=== PATIENT | male | born 1960 | race Caucasian/White ===

== ENCOUNTER 2025-06-16 14:21 | Outpatient (REF) | payer MEDICARE, SELFPAY ==
[2025-06-17 14:23] LABS: Antibody to SS-A Antigen <1.0 NEG AI (<1.0 NEG); Antibody to SS-B Antigen <1.0 NEG AI (<1.0 NEG)
[2025-06-19 12:43] LABS: Anti Nuclear Antibody Pattern Nuclear, Speckled; Anti Nuclear Antibody Screen POSITIVE (NEGATIVE); Anti Nuclear Antibody Titer 1:40 titer
== END 2025-06-16 14:22 | disposition home or self-care (01) ==
LOC: HO.WFDLDS 14:21
PROVIDERS: PCP Physician Assistant Medical; Referring Provider Physician Assistant Medical; Visit Provider Nurse Practitioner Family
DX: J84.9 Interstitial pulmonary disease, unspecified (principal); R91.1 Solitary pulmonary nodule; Z01.84 Encounter for antibody response examination; Z87.891 Personal history of nicotine dependence
CPT/HCPCS: 36415; 86038; 86039; 86200; 86225; 86235; 86431; 99202

== ENCOUNTER 2025-06-16 14:21 | Outpatient (AMB) | payer MEDICARE, SELFPAY ==
--- NOTE | 2025-06-16 14:24 | MHC.OFFVIS ---
Vital Signs 06/16/25 14:25 Height 5 ft 2 in Weight 162 lb BMI 29.6 BP 112/78 Blood Pressure Location Rt brachial Position Sitting Pulse 70 Pulse Source Pulse Oximeter Pulse Oximetry (%) 97 Oxygen Delivery Method Room Air Intake Visit Reasons: Pulmonary Nodules Allergies No Known Allergies Allergy (Verified 06/16/25 14:28) HPI HPI Pulmonary Nodules: Details: Shiv is a pleasant 65 year old male, former 20 pack year smoker, quit 30 years ago with underlying GERD, HLD and HTN. He was referred by PCP for further evaluation of incidental finding of a pulmonary nodule. The nodule was discovered following a respiratory illness suspected to be RSV, during which the patient experienced significant coughing but no dyspnea. During the evaluation at [place], a chest X-ray and subsequent CT scan revealed the presence of pulmonary nodules. CT report reveals subtle reticulation raising the question of chronic interstitial changes and indeterminate 3 to 4 mm solid nodule in the right middle lobe. The patient has a history of smoking, having smoked less than a pack per day from the late 1970s until quitting in the early . He denies any current respiratory symptoms, including cough, wheezing, or dyspnea, and has no history of asthma or COPD. The patient has a significant occupational history of exposure to potential respiratory irritants, having worked in [employer] and [employer] for approximately 30 years until retiring in 2013. There is a family history of pulmonary fibrosis, as the patient's brother, who did similar work, recently from the condition. The patient also reports a history of osteoarthritis, primarily affecting his hands, knees, and back, for which he receives regular cortisone injections. He has experienced dry eyes, which he attributes to recent cataract surgery, and uses eye drops for relief. Denies prior h/o autoimmune conditions. [facility] Social History (Updated 06/16/25 @ 14:27 by Aliyah Staley [facility]) Patient Tobacco Use Status: Former Tobacco user Review of Systems Const Denies chills, Denies excessive sweating, Denies fever(s), Denies headache(s) and Denies night sweats Eyes Denies dry eyes, Denies irritation and Denies itchy eyes ENT Reports Normal hearing present, Denies headache(s), Denies nasal congestion, Denies nasal discharge, Denies post nasal drip and Denies sore throat Card Denies chest pain, Denies chest pain at rest, Denies chest pain with activity, Denies claudication, Denies leg edema, Denies dyspnea, Denies dyspnea on exertion, Denies orthopnea and Denies paroxysmal nocturnal dyspnea Resp Denies chest congestion, Denies cough, Denies excessive phlegm production, Denies pain on inspiration, Denies pain with cough, Denies dyspnea, Denies dyspnea on exertion, Denies stridor and Denies wheezing Musc Denies myalgias Neuro Reports Normal hearing present and Denies headache(s) Endo Denies excessive sweating Pollo/Lymph Denies lymphadenopathy Aller/Immun Denies itchy eyes, Denies seasonal rhinorrhea and Denies wheezing Physical Exam Vital Signs: Last Vital Signs Pulse 70 06/16/25 14:25 BP 112/78 06/16/25 14:25 Pulse Ox 97 06/16/25 14:25 Oxygen Delivery Method Room Air 06/16/25 14:25 BMI result Body Mass Index 29.6 Const General: cooperative, healthy appearing, comfortable, no acute distress, well developed and alert Nutritional Appearance: obese Orientation/consciousness: patient oriented x3 Limitations: no limitations HEENT Head: Yes normal to inspection, Yes normocephalic and Yes atraumatic Ears: hearing grossly normal bilaterally and external ears normal Eyes General: appearance normal, both eyes and all related structures Eyelids: Yes eyelids normal Sclerae: sclerae normal EOM: EOMs intact bilaterally Neck Neck: Yes normal visual inspection and Yes no lymphadenopathy Lymphatic: no lymphadenopathy noted Chest Chest palpation & inspection: normal inspection of the chest Resp Effort & Inspection: normal respiratory effort, able to speak in complete sentences, no audible wheezes, no cough, no stridor, not tachypneic, no tripod positioning and no use of accessory muscles Auscultation: clear to auscultation bilaterally Cardio Jugular venous distension: no JVD Rate: regular rate Rhythm: regular rhythm Skin Other: warm, dry General skin exam: no rashes or lesions noted Neuro General: patient oriented x3 Cranial nerves: Yes Normal hearing present Cognition (Neuro): normal cognition Gait exam (Neuro): Normal gait present Extrem General: Yes normal to inspection, Yes capillary refill normal, Yes no clubbing, cyanosis or edema and Yes no pedal edema Psych Appearance: grossly normal and well kempt Speech and movement: Normal speech and movement present and Clear speech present Affect: normal affect Attitude: cooperative Thought process: Normal thought process present Thought content: Normal thought content present Insight: Good insight present (Psych) Judgement: Good judgement present (Psych) Results Reviewed Results Reviewed: RESULT: CT Chest W/O Contrast CT Chest W/O Contrast INDICATION: Chronic cough TECHNIQUE: Helical CT scan of the chest without IV contrast, formatted in 3 planes. Weight-based protocol was performed using automatic exposure control. CTDIvol Body: 12.57 mGy, DLP Body: 456 mGy*cm. COMPARISON: None. FINDINGS: Trachea and airways: Patent without evidence of tracheal or endobronchial lesion. Lungs and pleura: Subtle reticulation is identified most notably in the dependent portions of bilateral lower lobes, however also in the posterior aspect of the bilateral upper lobes and anteriorly in the left upper lobe. Indeterminant 3-4 mm solid appearing nodule in the right middle lobe (601:61). Calcified granuloma in the left lower lobe. Minimal bibasilar dependent atelectasis. No effusion or pneumothorax. Mediastinum and anitha: No mass or hematoma. No mediastinal or hilar lymphadenopathy. Esophagus is patulous. Partially imaged thyroid is unremarkable. Heart: Heart is normal in size. No pericardial effusion. Moderate coronary artery calcification. Aorta: Mild vascular calcification but no aneurysm. Pulmonary arteries: Normal caliber. Chest wall soft tissues: No acute abnormality. Diaphragm: Small left hemidiaphragm Bochdalek hernia. Upper abdomen: No significant abnormality. Bones: No acute abnormality. IMPRESSION: 1. No acute abnormality. 2. Subtle reticulation raising the question of chronic interstitial changes. Pulmonary consultation versus follow-up should be considered. 3. Indeterminate 3 to 4 mm solid nodule in the right middle lobe. If low risk for malignancy, no routine follow-up. If high risk, optional CT at 12 months. If unchanged, no further follow-up needed per Guidelines for Management of Incidental Pulmonary Nodules Detected on CT Images: From the Fleischner Society 2017. I have personally reviewed the images and I agree with this report. WSN: [id number] Ordering Physician: Han Escobar Reason For Exam R05.3 Chronic cough Signature Line Dictated By: Fallon Stuart DO Dictated Date/Time: 03/11/25 4:44 pm Reviewed By: Chemo De La Rosa MD Signed By: Chemo De La Rosa MD Signed Date/Time: 03/11/25 4:49 pm Transcribed By: LOURDES Transcribed Date/Time: 03/11/25 4:11 pm Assessment & Plan Assessment & Plan (1) Pulmonary nodule: Code(s): R91.1 - Solitary pulmonary nodule Category: Medical (2) Interstitial lung disease: Code(s): J84.9 - Interstitial pulmonary disease, unspecified Category: Medical Plan The plan involves obtaining the actual CT images from [facility] to assess the pulmonary nodule and possible interstitial lung disease more thoroughly. If the images suggest significant changes or scarring, a follow-up CT scan may be scheduled in six months to monitor progression. Blood work will be conducted to check for underlying autoimmune conditions that could explain the interstitial changes observed on the CT scan. Will also send for PFT to assess for any obstructive or restrictive defect given smoking history and CT changes. The patient is advised to report any new respiratory symptoms. All questions were answered and patient is in agreement with plan. Will follow-up in 8 weeks or sooner if needed. Orders: Orders Rheumatoid Factor 06/16/25 J84.9 - Interstitial pulmonary disease, unspecified Sjogren's Antibodies 06/16/25 J84.9 - Interstitial pulmonary disease, unspecified Cyclic Citrullinated Peptide 06/16/25 J84.9 - Interstitial pulmonary disease, unspecified Anti DNA DS Antibody 06/16/25 J84.9 - Interstitial pulmonary disease, unspecified JAMIL Reflex Titer and Pattern 06/16/25 J84.9 - Interstitial pulmonary disease, unspecified Scleroderma 70 Antibody 06/16/25 J84.9 - Interstitial pulmonary disease, unspecified Coding Level of Care Code New Pt Level 4 (29995) Diagnoses Pulmonary nodule R91.1 Interstitial lung disease J84.9
[2025-06-16 14:25] VITALS: BP 112/78; PULSE 70; O2SAT 97; BMI 29.6
--- OUTSIDE RECORDS SUMMARY | 2025-06-16 15:20 | XMS_ITS | Clinical Summary ---
Author Organization [facility] Address [address] [place] [address] Phone Care Team Providers Care Personal Lines Account Executive Name Role Phone Han Escobar Primary Care Provider [phone] Allergies No known active allergies Medications amLODIPine (NORVASC) 5 mg tablet Take 1 tablet (5 mg total) by mouth 1 (one) time each day. 09/17/2024 Active atorvastatin (LIPITOR) 40 mg tablet Take 1 tablet (40 mg total) by mouth 1 (one) time each day. 08/22/2024 Active gabapentin (NEURONTIN) 600 mg tablet Take 1 tablet (600 mg total) by mouth. Active hydroCHLOROthia zide (HYDRODIURIL) 25 mg tablet Take 1 tablet (25 mg total) by mouth 1 (one) time each day. 09/17/2024 Active labetaloL (NORMODYNE) 300 mg tablet Take 1 tablet (300 mg total) by mouth 2 (two) times a day. Active omeprazole (PriLOSEC) [address] capsule Take 1 capsule (20 mg total) by mouth 1 (one) time each day. 09/17/2024 Active oxyCODONE (ROXICODONE) 5 mg immediate release tablet Take 1 tablet (5 mg total) by mouth every 6 (six) hours if needed. for pain Max Daily Amount: 20 mg 05/27/2024 Active sildenafiL (VIAGRA) 100 mg tablet 10/05/2024 Active traMADoL (ULTRAM) 50 mg tablet Take 1 tablet (50 mg total) by mouth. 04/28/2024 Active pedi multivit 216-vit D3-vit K 76-1,000 mcg/mL drops Take 1,000 Int'l Units by mouth. 08/29/2016 Active Medical History Medical History Date Comments Hypertension Osteoarthritis Heart burn Social History Tobacco Use Types Packs/Day Years Used Date Smoking Tobacco: Former Cigarettes Tobacco Cessation:Counseling Given: Not Answered Alcohol Use Standard Drinks/Week Comments Never 0 (1 standard drink = 0.6 oz pur e alcohol) Sex and Gender Information Value Date Recorded Sex Assigned at Not on file Legal Sex Male 8:25 AM EST Gender Identity Not on file Sexual Orientation Not on file Obstetrics History Last Filed Vital Signs Vital Sign Reading Time Taken Comments Blood Pressure 118/95 10/06/2024 8:39 AM EST Pulse 114 10/06/2024 8:39 AM EST Temperature 37 C (98.6 F) 10/06/2024 8:39 AM EST Respiratory Rate 22 10/06/2024 9:07 AM EST Oxygen Saturation 100% 10/06/2024 8:39 AM EST Inhaled Oxygen Concentration - - Weight 70.9 kg (156 lb 6.4 oz) 10/06/2024 8:39 A M EST Height 157.5 cm (5' 2 ) 10/06/2024 8:39 AM EST Body Mass Index 28.61 10/06/2024 8:39 AM EST Plan of Treatment Health Maintenance Due Date Last Done Comments DTaP,Tdap,and Td Vaccines (1 - Tdap) 1977 Pneumococcal Vaccine: 50+ Years (1 of 1 - PCV) 2008 Zoster Vaccines (1 of 2) 2008 COVID-19 Vaccine (3 - 2023-2 5 season) 2024 02/10/2021, 01/20/2021 Abdominal Aortic Aneurysm (AAA) Screen 10/06/2024 Cholesterol Screening (Lipid Panel) 10/06/2024 Colorectal Cancer Screening: Colonoscopy 10/06/2024 Falls Risk Assessment 10/06/2024 Hepatitis C Screening 10/06/2024 Social Influencers of Health Screening 10/06/2024 Hypertension/CHF/CAD Annual BMP Blood Test 10/07/2024 Depression Screening 10/28/2024 Influenza Vaccine (#1) 2025 RSV Immunization Adult Patients (1 - 1-dose 75+ series) 2033 HIB Vaccines Aged Out No longer eligi ble based on patient's age to complete this topic HPV Vaccines Aged Out No longer eligi ble based on patient's age to complete this topic Hepatitis A Vaccines Aged Out No long er eligible based on patient's age to complete this topic Hepatitis B Vaccines Aged Out No long er eligible based on patient's age to complete this topic IPV Vaccines Aged Out No longer eligi ble based on patient's age to complete this topic MMR Vaccines Aged Out No longer eligi ble based on patient's age to complete this topic Meningococcal ACWY Vaccine Aged Out N o longer eligible based on patient's age to complete this topic Meningococcal B Vaccine Aged Out No l onger eligible based on patient's age to complete this topic RSV Immunization Patients Under 20 months Aged Out No longer eligible b ased on patient's age to complete this topic Varicella Vaccines Aged Out No longer eligible based on patient's age to complete this topic [place] [address] [place] [address] PLANS Care Teams Personal Lines Account Executive Relationship Specialty Start Date End Date Han Escobar PA PCP - General Physician Production Control Expediter 12/16/24
== END 2025-06-16 14:58 | disposition home or self-care (01) ==
LOC: HO.HPSW 14:22
PROVIDERS: PCP Physician Assistant Medical; Referring Provider Physician Assistant Medical; Visit Provider Nurse Practitioner Family
DX: R91.1 Solitary pulmonary nodule (principal); J84.9 Interstitial pulmonary disease, unspecified
CPT/HCPCS: 99204

== ENCOUNTER 2025-08-10 14:57 | Outpatient (AMB) | payer MEDICARE, SELFPAY ==
[2025-08-10 14:59] VITALS: BP 126/78; PULSE 78; O2SAT 98; BMI 27.5
--- NOTE | 2025-08-10 14:59 | MHC.OFFVIS ---
Vital Signs 08/10/25 14:59 Height 5 ft 2 in Weight 150 lb 8 oz BMI 27.5 BP 126/78 Blood Pressure Location Rt brachial Position Sitting Pulse 78 Pulse Source Pulse Oximeter Pulse Oximetry (%) 98 Oxygen Delivery Method Room Air Intake Visit Reasons: Pulmonary Nodules Allergies No Known Allergies Allergy (Verified 08/10/25 15:01) HPI HPI Pulmonary Nodules: Details: Shiv is a pleasant 65 year old male, former 20 pack year smoker, quit 30 years ago with underlying GERD, HLD and HTN. He was referred by PCP for further evaluation of incidental finding of a pulmonary nodule. The nodule was discovered following a respiratory illness suspected to be RSV, during which the patient experienced significant coughing but no dyspnea. During the evaluation at [place], a chest X-ray and subsequent CT scan revealed the presence of pulmonary nodules. CT report reveals subtle reticulation raising the question of chronic interstitial changes and indeterminate 3 to 4 mm solid nodule in the right middle lobe. The patient has a significant exposures to potential respiratory irritants, having worked in [employer] and [employer] for approximately 30 years until retiring in 2013 as well as family history of pulmonary fibrosis, as the patient's brother, who did similar work, recently from the condition. He currently denies any respiratory symptoms, including cough, wheezing, or dyspnea, and has no history of asthma or COPD. At the last visit, attempted to obtain images of prior chest CT however have yet to receive. PFT also discussed however patient asymptomatic, will hold off at this time until repeat chest CT. Of note, since the last visit patient diagnosed with prostate cancer and will be undergoing PET through [facility] for further evaluation. Under the care of [facility]. [facility] Social History Patient Tobacco Use Status: Former Tobacco user Review of Systems Const Denies chills, Denies excessive sweating, Denies fever(s), Denies headache(s) and Denies night sweats Eyes Denies dry eyes, Denies irritation and Denies itchy eyes ENT Reports Normal hearing present, Denies headache(s), Denies nasal congestion, Denies nasal discharge, Denies post nasal drip and Denies sore throat Card Denies chest pain, Denies chest pain at rest, Denies chest pain with activity, Denies claudication, Denies leg edema, Denies dyspnea, Denies dyspnea on exertion, Denies orthopnea and Denies paroxysmal nocturnal dyspnea Resp Denies chest congestion, Denies cough, Denies excessive phlegm production, Denies pain on inspiration, Denies pain with cough, Denies dyspnea, Denies dyspnea on exertion, Denies stridor and Denies wheezing Musc Denies myalgias Neuro Reports Normal hearing present and Denies headache(s) Endo Denies excessive sweating Pollo/Lymph Denies lymphadenopathy Aller/Immun Denies itchy eyes, Denies seasonal rhinorrhea and Denies wheezing Physical Exam Vital Signs: Last Vital Signs Pulse 78 08/10/25 14:59 BP 126/78 08/10/25 14:59 Pulse Ox 98 08/10/25 14:59 Oxygen Delivery Method Room Air 08/10/25 14:59 BMI result Body Mass Index 27.5 Const General: cooperative, healthy appearing, comfortable, no acute distress, well developed and alert Orientation/consciousness: patient oriented x3 Limitations: no limitations HEENT Head: Yes normal to inspection, Yes normocephalic and Yes atraumatic Ears: hearing grossly normal bilaterally and external ears normal Eyes General: appearance normal, both eyes and all related structures Eyelids: Yes eyelids normal Sclerae: sclerae normal EOM: EOMs intact bilaterally Neck Neck: Yes normal visual inspection and Yes no lymphadenopathy Lymphatic: no lymphadenopathy noted Chest Chest palpation & inspection: normal inspection of the chest Resp Effort & Inspection: normal respiratory effort, able to speak in complete sentences, no audible wheezes, no cough, no stridor, not tachypneic, no tripod positioning and no use of accessory muscles Auscultation: clear to auscultation bilaterally Cardio Jugular venous distension: no JVD Rate: regular rate Rhythm: regular rhythm Skin Other: warm, dry General skin exam: no rashes or lesions noted Neuro General: patient oriented x3 Cranial nerves: Yes Normal hearing present Cognition (Neuro): normal cognition Gait exam (Neuro): Normal gait present Extrem General: Yes normal to inspection, Yes capillary refill normal, Yes no clubbing, cyanosis or edema and Yes no pedal edema Psych Appearance: grossly normal and well kempt Speech and movement: Normal speech and movement present and Clear speech present Affect: normal affect Attitude: cooperative Thought process: Normal thought process present Thought content: Normal thought content present Insight: Good insight present (Psych) Judgement: Good judgement present (Psych) Assessment & Plan Assessment & Plan (1) Pulmonary nodule: Code(s): R91.1 - Solitary pulmonary nodule Category: Medical (2) Interstitial lung disease: Code(s): J84.9 - Interstitial pulmonary disease, unspecified Category: Medical Plan At this time patient denies any respiratory symptoms and would prefer to hold off on PFT. He is aware to call if symptoms change. Discussed obtaining baseline PFT, may consider if there are any changes on repeat chest CT which will be ordered for one year to assess stability of nodules as well as chronic interstitial findings. He is requesting this order to be placed at [facility]. Again will attempt to obtain images from prior chest CT 02/2025. Patient also considered switching to [facility] as this office is quite far for him to drive. All questions were answered and patient is in agreement with plan. Will follow-up to review results or sooner if needed. Orders: Orders CT chest wo IV con 6 Months J84.9 - Interstitial pulmonary disease, unspecified, R91.1 - Solitary pulmonary nodule Coding Level of Care Code Est Pt Level 3 (39961) Diagnoses Pulmonary nodule R91.1 Interstitial lung disease J84.9
== END 2025-08-10 15:24 | disposition home or self-care (01) ==
LOC: HO.HPSW 14:57
PROVIDERS: PCP Physician Assistant Medical; Visit Provider Nurse Practitioner Family
DX: R91.1 Solitary pulmonary nodule (principal); J84.9 Interstitial pulmonary disease, unspecified
CPT/HCPCS: 99213

== ENCOUNTER → 2025-08-10 14:57 | Outpatient (BNVA) | payer MEDICARE, SELFPAY | PROVIDERS: PCP Physician Assistant Medical; Visit Provider Nurse Practitioner Family | DX: R91.1 Solitary pulmonary nodule (principal); J84.9 Interstitial pulmonary disease, unspecified | CPT/HCPCS: 99212 ==